=== PATIENT | female | born 2005 | race Caucasian/White ===

== ENCOUNTER 2024-04-09 21:44 | Emergency (ER) | payer MEDICAID, SELFPAY ==
--- NOTE | ~2024-04-09 | US_ITS ---
EXAMINATION: US OBSTETRICAL ULTRASOUND CLINICAL INFORMATION: patient with vaginal bleeding. COMPARISON: None available. LMP: February 25, 2024. Gestational age by maternal dates is 6 weeks and 3 days. Estimated date of delivery by maternal dates is December 01, 2024. TECHNIQUE: Transabdominal and transvaginal obstetrical ultrasound performed. FINDINGS: There is a single intrauterine gestational sac with visible yolk sac, embryo/fetus, and cardiac activity. There is a thin hypoechoic area along the gestational sac. HR: 106 beats per minute. CRL (crown rump length): 0.24 cm (6 weeks and 0 days +/- 4 days). MEGAN (estimated date of delivery): 12/04/2024 +/- 4 days. MATERNAL ADNEXA: The right maternal ovary measures 2.3 x 1.3 x 2.0 cm. The left maternal ovary measures 3.6 x 2.1 x 2.0 cm. There is no significant maternal adnexal mass. No maternal pelvic ascites. US/US OB pelvic and transvaginal IMPRESSION: 1. Single intrauterine gestation with ultrasound gestational age of 6 weeks and 0 days +/- 4 days. 2. Estimated date of delivery is December 04, 2024 +/- 4 days. 3. Suggestion of a small subchorionic hemorrhage. 4. No maternal adnexal mass or pelvic ascites. Electronically signed by: Jarrod Obrien MD 04/10/2024 02:09 AM [facility] [place]
[2024-04-09 21:49] VITALS: BP 133/74; PULSE 79; RESP 16; TEMP 36.8; O2SAT 100; BMI 34.6
[2024-04-09 22:33] LABS: MANUAL DIFF FLAG NO
[2024-04-09 22:34] LABS: Basophils Absolute Auto 0.1 X10*3/uL (0.0-0.2); Basophils Percent Auto 0.6 % (0-2); Eosinophils Absolute Auto 0.1 X10*3/uL (0.0-0.4); Eosinophils Percent Auto 0.9 % (0-4); Hematocrit 37.9 % (37.0-47.0); Hemoglobin 13.6 g/dl (12.0-16.0); Imm Gran Abs Auto 0.05 X10*3/uL (0.00-0.03); Imm Gran Pct Auto 0.4 % (0.0-0.4); Lymphocytes Absolute Auto 2.2 X10*3/uL (1.2-4.9); Lymphocytes Percent Auto 17.1 % (20-40); Mean Corpuscular HGB Conc 35.9 g/dl (31.0-35.0); Mean Corpuscular Hemoglobin 31.7 pg (27.0-33.0); Mean Corpuscular Volume 88.3 fL (80.0-98.0); Mean Platelet Volume 11.6 fL (9.4-12.3); Monocytes Absolute Auto 1.1 X10*3/uL (0.1-1.2); Monocytes Percent Auto 8.8 % (2-11); Neutrophils Absolute Auto 9.1 x10*3/uL (2.0-8.3); Neutrophils Percent Auto 72.2 % (45-73); Platelet Count 232 X10*3/uL (160-400); Red Blood Count 4.29 X10*6/uL (4.20-5.50); Red Cell Distribution Width 13.1 % (11.0-16.0); White Blood Count 12.6 X10*3/uL (4.8-10.8)
[2024-04-09 22:50] LABS: Alanine Aminotransferase 19 U/L (0-31); Albumin Level 4.3 g/dL (3.5-5.0); Alkaline Phosphatase 68 U/L (39-117); Anion Gap 14 (12-20); Aspartate Amino Transferase 22 U/L (5-31); Bilirubin Total 0.5 mg/dL (0.0-1.0); Blood Urea Nitrogen 10 mg/dL (9-16); Calcium 9.4 mg/dL (8.4-10.2); Carbon Dioxide 24 mmol/L (22-29); Chloride 104 mmol/L (96-108); Creatinine Clr Calc Pharmacy 111.3; Estimated Glomerular Filt Rate > 60; Glucose Random 81 mg/dL (60-115); Potassium 3.6 mmol/L (3.3-5.1); Sodium 138 mmol/L (135-145)
[2024-04-09 22:58] LABS: Appearance Urine Clear; Color Urine Yellow; Glucose Urine UA Negative (Negative); Leukocyte Esterase Urine Negative (Negative); Nitrite Urine Negative (Negative); Specific Gravity - Urine 1.025 (1.005-1.025); UMIC TRIGGER UACC YES; Urine Blood Moderate (2+) (Negative); Urine Ketones Negative (Negative); Urine Protein Negative (Neg-Trace)
[2024-04-09 23:06] LABS: Bacteria Urine None Seen (None Seen); Hyaline Casts Urine 0-2 /LPF (0-2); RBC Urine 0-2 /HPF (0-2); WBC Urine 0-5 /HPF (0-5)
--- NOTE | 2024-04-09 23:48 | ED.PREGNANCY ---
HPI - General Chief complaint: OB Stated complaint: 6 weeks preg/bleeding Time Seen by Provider: 04/09/24 23:40 Source: patient Mode of arrival: ambulatory Limitations: no limitations History of Present Illness ED Provider: DR. Gonzales HPI Narrative: 18-year-old female 6 weeks came in for evaluation of vaginal spotting, low back pain and lower abdominal contractions. Patient had recent ultrasound done at [facility] with gestational age of 5 weeks and 2 days. Related Data Allergies Allergy/AdvReac Type Severity Reaction Status Date / Time morphine Allergy Itching Verified 04/09/24 21:53 Review of Systems Review of Systems: All other systems are reviewed and are negative Constitutional: Reports as per HPI and Reports no additional constitutional complaints Eyes: Reports as per HPI and Reports no additional eye complaints Reports system reviewed and no additional complaints, except as documented Cardiovascular: Reports as per HPI and Reports no additional cardiovascular complaints Respiratory: Reports as per HPI and Reports no additional respiratory complaints Gastrointestinal: Reports as per HPI and Reports no additional gastrointestinal complaints Genitourinary: Reports no additional female genitourinary complaints Musculoskeletal: Reports no additional musculoskeletal complaints Skin/Breast: Reports system reviewed and no additional complaints, except as docu Psychiatric: Reports no additional psychiatric complaints Endocrine: Reports no additional endocrine complaints Hematologic/Lymphatic: Reports no additional hematologic/lymphatic complaints Allergic/Immunologic: Reports no additional allergic/immunologic complaints Reports system reviewed and no additional complaints, except as documented and Reports Abnormal speech present [facility] Social History Social History Advance Directives: No Advance Directives Information Provided: Yes Do you have a plan to hurt others: No Plan Physical Exam Vital Signs: Vital Signs: Last Vital Signs Temp 98.2 F 04/09/24 21:49 Pulse 79 04/09/24 21:49 Resp 16 04/09/24 21:49 BP 133/74 04/09/24 21:49 Pulse Ox 100 04/09/24 21:49 O2 Del Method Room Air 04/09/24 21:49 BMI result Body Mass Index 34.6 Vital signs have been reviewed and appear to be correct. Blood pressure elevated. Heart rate normal. Respiratory rate normal. Temperature normal. Oxygen saturation normal. Appearance: Alert. Oriented X3. No acute distress. Head: Normal external exam. Normocephalic. Atraumatic. No [place]o signs noted. No raccoon eyes noted Eyes: PERRLA. EOMI. Conjunctiva and sclera normal. Eyelids normal. ENT: TM's Normal. Pharynx normal. Uvula midline. Moist mucous membranes. No trismus noted. No drooling noted. No muffled voice noted. Neck: Normal inspection. Neck supple. FROM. No adenopathy. Thyroid Normal. No meningeal signs. No neck mass noted. CVS: Normal heart rate and rhythm. Heart sound normal. No murmurs noted. Pulses normal throughout. Respiratory: No respiratory distress. Painless inspiration. Breath sounds normal. No wheezes/rales/rhonchi noted. Chest nontender. No accessory muscle usage noted or decreased air movement noted. Abdomen: Soft and nontender. Bowel sounds normal in all 4 quadrants. No distention noted. No organomegaly noted. No visible injury noted. Pelvic exam: Deferred for pelvic ultrasound. Back: No CVA tenderness. Full range of motion noted. Skin: Skin warm and dry. Normal skin color. Normal skin turgor. No rashes/lesions/lacerations noted. Extremities: No lower extremity edema. Extremities exhibit normal range of motion. Extremities nontender. Neuro: Oriented X 3. Cranial nerve exam: II-XII are grossly intact No motor deficit. No sensory deficit. Reflexes normal. Course Reevaluation(s) Reevaluation #1: 6 weeks with vaginal spotting, awaiting for limited OB pelvic ultrasound case signed out to Dr. Cardoso Time: 01:00 Medical Decision Making Differential Diagnosis Differential Diagnoses: The differential diagnosis associated with the presentation includes (Early normal , threatened , ectopic , electrolyte derangement, severe anemia.) Admission/Observation Consideration of admission/observation: Escalation of care including admission/observation considered Lab Data [facility] Lab Attestation statement: I reviewed the patient's lab results. 04/09/24 22:29 04/09/24 22:29 Labs: Lab Results 04/09/24 04/09/24 Range/Units 22:29 22:50 WBC 12.6 H (4.8-10.8) X10*3/uL RBC 4.29 (4.20-5.50) X10*6/uL Hgb 13.6 (12.0-16.0) g/dl Hct 37.9 (37.0-47.0) % MCV 88.3 (80.0-98.0) fL MCH 31.7 (27.0-33.0) pg MCHC 35.9 H (31.0-35.0) g/dl RDW 13.1 (11.0-16.0) % Plt Count 232 (160-400) X10*3/uL MPV 11.6 (9.4-12.3) fL Immature Gran % (Auto) 0.4 (0.0-0.4) % Neut % (Auto) 72.2 (45-73) % Lymph % (Auto) 17.1 L (20-40) % [place] % (Auto) 8.8 (2-11) % Eos % (Auto) 0.9 (0-4) % Baso % (Auto) 0.6 (0-2) % Lymph # (Auto) 2.2 (1.2-4.9) X10*3/uL [place] # (Auto) 1.1 (0.1-1.2) X10*3/uL Eos # (Auto) 0.1 (0.0-0.4) X10*3/uL Baso # (Auto) 0.1 (0.0-0.2) X10*3/uL Abs Immat Gran (auto) 0.05 H (0.00-0.03) X10*3/uL Absolute Neuts (auto) 9.1 H (2.0-8.3) x10*3/uL Absolute Nucleated RBC 0.000 (0.0-0.012) X10*3/uL Nucleated RBC % (auto) 0.0 (0.0-0.2) /100WBC Sodium 138 (135-145) mmol/L Potassium 3.6 (3.3-5.1) mmol/L Chloride 104 (96-108) mmol/L Carbon Dioxide 24 (22-29) mmol/L Anion Gap 14 (12-20) BUN 10 (9-16) mg/dL Creatinine 0.67 (0.5-1.4) mg/dL Estim Creat Clear Calc 111.3 Estimated GFR > 60 Random Glucose 81 (60-115) mg/dL Calcium 9.4 (8.4-10.2) mg/dL Total Bilirubin 0.5 (0.0-1.0) mg/dL AST 22 (5-31) U/L ALT 19 (0-31) U/L Alkaline Phosphatase 68 (39-117) U/L Total Protein 7.0 (6.5-8.0) g/dL Albumin 4.3 (3.5-5.0) g/dL Urine Color Yellow Urine Appearance Clear Urine pH 6.0 (5.0-9.0) Ur Specific [place] 1.025 (1.005-1.025) Urine Protein Negative (Neg-Trace) mg/dL Urine Glucose (UA) Negative (Negative) mg/dL Urine Ketones Negative (Negative) mg/dL Urine Blood Moderate (2+) H (Negative) Urine Nitrite Negative (Negative) Ur Leukocyte Esterase Negative (Negative) Urine RBC 0-2 (0-2) /HPF Urine WBC 0-5 (0-5) /HPF Ur Squamous Epith Cells 3-5 (0-2) /HPF Urine Bacteria None Seen (None Seen) Hyaline Casts 0-2 (0-2) /LPF Discharge Plan Discharge Clinical Impression: Threatened Patient Disposition: Still a Patient Print Language: Maori
[2024-04-09 23:59] LABS: HCG Quantitative 34955 mIU/mL
[2024-04-10 01:55] VITALS: BP 106/63; PULSE 84; RESP 16; TEMP 36.8; O2SAT 97
[2024-04-10 02:35] VITALS: BP 106/63; PULSE 84; RESP 16; TEMP 36.8; O2SAT 97
--- NOTE | 2024-06-11 14:51 | ED.FEMALEGU ---
HPI - Female Genitourinary General Chief complaint: OB Stated complaint: 6 weeks preg/bleeding Time Seen by Provider: 04/09/24 23:40 Source: patient Mode of arrival: ambulatory Limitations: no limitations History of Present Illness ED Provider: dr martines/amber HPI Narrative: 18-year-old female 6 weeks came in for evaluation of vaginal spotting, low back pain and lower abdominal contractions. Patient had recent ultrasound done at [facility] with gestational age of 5 weeks and 2 days. Related Data Allergies Allergy/AdvReac Type Severity Reaction Status Date / Time morphine Allergy Itching Verified 04/09/24 21:53 Review of Systems Review of Systems: Yes all other systems are reviewed and are negative [facility] Social History Social History Advance Directives: No Advance Directives Information Provided: Yes Do you have a plan to hurt others: No Plan Physical Exam Vital Signs: Vital Signs: Last Vital Signs Temp 98.3 F 04/10/24 02:35 Pulse 84 04/10/24 02:35 Resp 16 04/10/24 02:35 BP 106/63 04/10/24 02:35 Pulse Ox 97 04/10/24 02:35 O2 Del Method Room Air 04/10/24 02:35 BMI result Body Mass Index 34.6 Appearance: Alert. Oriented X3. No acute distress. Eyes: PERRLA, No Nystagmus ENT: Pharynx normal. Oral Mucosa moist Neck: Normal inspection. Neck supple. CVS: Normal heart rate and rhythm. Pulses normal. Respiratory: No respiratory distress. Equal air entry bilateral, no wheezing/rales/rhonchi Abdomen: Soft and nontender. Bowel sounds are present, no mass palpable, no CVA tenderness Skin: Skin warm and dry. Normal skin color. Normal skin turgor. Extremities: No lower extremity edema. No calf tenderness Neuro: Oriented X 3. No motor deficit. No sensory deficit.No cerebellar signs , cranial nerves II-XII intact Medical Decision Making Medical Decision Making MDM Narrative: Patient is 6 weeks with vaginal spotting ultrasound ordered which showed IUP 6 weeks 0 day with small subchorionic bleed patient advised rest follow up with Ob G Patient was seen originally by Dr. Martines which is been modified and copied Differential Diagnosis Differential Diagnoses: The differential diagnosis associated with the presentation includes Miscarriage/vaginal spotting Lab Data MDM Lab Attestation statement: I reviewed the patient's lab results. 04/09/24 22:29 04/09/24 22:29 Labs: Lab Results 04/09/24 04/09/24 Range/Units 22:29 22:50 WBC 12.6 H (4.8-10.8) X10*3/uL RBC 4.29 (4.20-5.50) X10*6/uL Hgb 13.6 (12.0-16.0) g/dl Hct 37.9 (37.0-47.0) % MCV 88.3 (80.0-98.0) fL MCH 31.7 (27.0-33.0) pg MCHC 35.9 H (31.0-35.0) g/dl RDW 13.1 (11.0-16.0) % Plt Count 232 (160-400) X10*3/uL MPV 11.6 (9.4-12.3) fL Immature Gran % (Auto) 0.4 (0.0-0.4) % Neut % (Auto) 72.2 (45-73) % Lymph % (Auto) 17.1 L (20-40) % [place] % (Auto) 8.8 (2-11) % Eos % (Auto) 0.9 (0-4) % Baso % (Auto) 0.6 (0-2) % Lymph # (Auto) 2.2 (1.2-4.9) X10*3/uL [place] # (Auto) 1.1 (0.1-1.2) X10*3/uL Eos # (Auto) 0.1 (0.0-0.4) X10*3/uL Baso # (Auto) 0.1 (0.0-0.2) X10*3/uL Abs Immat Gran (auto) 0.05 H (0.00-0.03) X10*3/uL Absolute Neuts (auto) 9.1 H (2.0-8.3) x10*3/uL Absolute Nucleated RBC 0.000 (0.0-0.012) X10*3/uL Nucleated RBC % (auto) 0.0 (0.0-0.2) /100WBC Sodium 138 (135-145) mmol/L Potassium 3.6 (3.3-5.1) mmol/L Chloride 104 (96-108) mmol/L Carbon Dioxide 24 (22-29) mmol/L Anion Gap 14 (12-20) BUN 10 (9-16) mg/dL Creatinine 0.67 (0.5-1.4) mg/dL Estim Creat Clear Calc 111.3 Estimated GFR > 60 Random Glucose 81 (60-115) mg/dL Calcium 9.4 (8.4-10.2) mg/dL Total Bilirubin 0.5 (0.0-1.0) mg/dL AST 22 (5-31) U/L ALT 19 (0-31) U/L Alkaline Phosphatase 68 (39-117) U/L Total Protein 7.0 (6.5-8.0) g/dL Albumin 4.3 (3.5-5.0) g/dL Beta HCG, Quant 95434 mIU/mL Urine Color Yellow Urine Appearance Clear Urine pH 6.0 (5.0-9.0) Ur Specific [place] 1.025 (1.005-1.025) Urine Protein Negative (Neg-Trace) mg/dL Urine Glucose (UA) Negative (Negative) mg/dL Urine Ketones Negative (Negative) mg/dL Urine Blood Moderate (2+) H (Negative) Urine Nitrite Negative (Negative) Ur Leukocyte Esterase Negative (Negative) Urine RBC 0-2 (0-2) /HPF Urine WBC 0-5 (0-5) /HPF Ur Squamous Epith Cells 3-5 (0-2) /HPF Urine Bacteria None Seen (None Seen) Hyaline Casts 0-2 (0-2) /LPF Radiology Impression Discussion of test interpretation with radiology: I have reviewed the radiologist's reading. Radiologist Impression: [address] [id number] Ultrasound Report Signed Patient: Maddy Amaya MR#: [id number] : 2005 Acct:[id number] Age/Sex: 18 / F ADM Date: 04/09/24 Loc: .ED Attending Dr: Ordering Physician: William Martines MD Date of Service: 04/09/24 Procedure(s): US OB pelvic and transvaginal Accession Number(s): [id number] cc: William Martines MD; Physician,None ~ EXAMINATION: US OBSTETRICAL ULTRASOUND CLINICAL INFORMATION: patient with vaginal bleeding. COMPARISON: None available. LMP: February 25, 2024. Gestational age by maternal dates is 6 weeks and 3 days. Estimated date of delivery by maternal dates is December 01, 2024. TECHNIQUE: Transabdominal and transvaginal obstetrical ultrasound performed. FINDINGS: There is a single intrauterine gestational sac with visible yolk sac, embryo/fetus, and cardiac activity. There is a thin hypoechoic area along the gestational sac. HR: 106 beats per minute. CRL (crown rump length): 0.24 cm (6 weeks and 0 days +/- 4 days). MEGAN (estimated date of delivery): 12/04/2024 +/- 4 days. MATERNAL ADNEXA: The right maternal ovary measures 2.3 x 1.3 x 2.0 cm. The left maternal ovary measures 3.6 x 2.1 x 2.0 cm. There is no significant maternal adnexal mass. No maternal pelvic ascites. US/US OB pelvic and transvaginal IMPRESSION: 1. Single intrauterine gestation with ultrasound gestational age of 6 weeks and 0 days +/- 4 days. 2. Estimated date of delivery is December 04, 2024 +/- 4 days. 3. Suggestion of a small subchorionic hemorrhage. 4. No maternal adnexal mass or pelvic ascites. Electronically signed by: Jarrod Obrien MD 04/10/2024 02:09 AM [facility] [place] Discharge Plan Discharge Clinical Impression: Threatened Patient Disposition: Home, Self-Care Instructions: Threatened Miscarriage (ED) Additional Instructions: Rest avoid any strenuous activity Follow with your gynecology teacher Interventions: ED Discharge Assessment Last Done: 04/10/24 02:35 Discharge Date/Time: 04/10/24 02:35 Print Language: Luxembourgish
== END 2024-04-10 02:35 | disposition home or self-care (01) ==
PROVIDERS: Emergency Provider Emergency Medicine
DX: O20.0 Threatened abortion (principal); Z3A.01 Less than 8 weeks gestation of pregnancy
CPT/HCPCS: 36415; 76801; 76817; 80053; 81001; 81003; 84702; 85025; 99283; 99284